=== PATIENT | female | born 1955 | race Caucasian/White ===

== ENCOUNTER 2017-02-25 03:21 | Emergency (ER) | payer BC ==
[2017-02-25 03:57] LABS: BASO # 0.1 10_X3_uL (0.0-0.1); BASO % 0.7 % (0.1-1.2); EOS # 0.3 10_X3_uL (0.0-0.4); EOS % 2.2 % (0.7-5.8); GRAN # 8.9 10_X3_uL (1.6-6.1); GRAN % 66.9 % (34.0-71.1); HEMATOCRIT 43.3 % (34-45); LYMPH # 2.4 10_X3_uL (1.2-3.7); LYMPH % 18.4 % (19.3-51.7); MEAN CORPUSCULAR HEMOGLOBIN 28.5 pg (27.0-33.0); MEAN CORPUSCULAR HGB CONC 32.3 g/dL (32.0-36.0); MEAN PLATELET VOLUME 11.2 fl (7.5-11.5); MONO # 1.6 10_X3_uL (0.2-0.9); MONO % 11.8 % (4.7-12.5); PLATELET COUNT 223 x10_3/uL (182-369); RED BLOOD COUNT 4.92 x10_6/uL (3.9-5.2); RED CELL DISTRIBUTION WIDTH 15.4 % (11.7-14.4); WHITE BLOOD COUNT 13.2 x10_3/uL (4.0-10.0)
[2017-02-25 04:02] LABS: BILIRUBIN,TOTAL 1.18 mg/dL (0.0-1.0); CALCIUM 9.2 mg/dL (8.7-10.7); CREATININE 1.2 mg/dL (0.6-1.3); POTASSIUM 3.6 mmol/L (3.5-5.1)
== END 2017-02-25 05:55 | disposition home or self-care (01) ==
LOC: ER 03:21
PROVIDERS: Emergency Medicine
DX: K80.20 Calculus of gallbladder without cholecystitis without obstruction (principal); R10.13 Epigastric pain; I25.2 Old myocardial infarction; I10 Essential (primary) hypertension; M06.9 Rheumatoid arthritis, unspecified; M19.90 Unspecified osteoarthritis, unspecified site; Z95.1 Presence of aortocoronary bypass graft; Z90.49 Acquired absence of other specified parts of digestive tract; Z79.899 Other long term (current) drug therapy; Z79.82 Long term (current) use of aspirin; Z88.2 Allergy status to sulfonamides; Z88.5 Allergy status to narcotic agent; Z88.8 Allergy status to other drugs, medicaments and biological substances
CPT/HCPCS: 36415; 80053; 82150; 82550; 82553; 83690; 85025; 93005; 96374; 99070; 99284-25